=== PATIENT | male | born 1960 | race Caucasian/White ===

== ENCOUNTER 2022-12-26 12:31 | Inpatient (IN) | payer OTHER ==
[~2022-12-26] VITALS: Ht 188 cm; Wt 134.5 kg
[2022-12-26 13:15] VITALS: PULSE 90; RESP 16; O2SAT 99
[2022-12-26] MEDS ORDERED: ASPirin 81 mg TAB PO ONE (13:15)
[2022-12-26 13:24] LABS: Basophils # (auto) 0 10 ^3/uL (0-0.2); Basophils % (auto) 0.3 % (0.0-2.0); Eosinophils # (auto) 0 10 ^3/uL (0-0.8); Eosinophils % (auto) 0.3 % (0.0-7.0); Hematocrit 44.9 % (41.0-53.0); Hemoglobin 15.3 g/dL (13.5-17.5); Lymphocytes # (auto) 2.1 10 ^3/uL (0.4-5.4); Lymphocytes % (auto) 13.1 % (10.0-50.0); Mean Corpuscular Hemoglobin 30.7 pg (28.0-32.0); Mean Corpuscular Hgb Conc. 34.2 g/dL (32.0-36.0); Mean Corpuscular Volume 89.7 fL (80.0-100.0); Monocytes # (auto) 1.4 10 ^3/uL (0-1.3); Monocytes % (auto) 9.1 % (0.0-12.0); Neutrophils # (auto) 12.2 10 ^3/uL (1.6-8.6); Neutrophils % (auto) 77.2 % (37.0-80.0); Nucleated Red Blood Cells % 0.1 %; Red Blood Cells 5.01 10^6/uL (4.5-5.90); Red Cell Distribution Width 13.7 % (11.8-14.3); White Blood Cell 15.8 10^3/uL (4.4-10.8)
[2022-12-26 13:30] LABS: INR 1.06 (0.9-1.15); Partial Thromboplastin Time 24.8 SEC (24.5-34.5); Prothrombin Time 11.1 sec (9.3-11.8)
[2022-12-26 13:31] LABS: Alanine Aminotransferase 24 U/L (7-40); Albumin 4.7 g/dL (3.2-4.8); Alkaline Phosphatase 88 U/L (46-116); Anion Gap 11 (5-15); Aspartate Aminotransferase 21 U/L (13-40); BUN/Creatinine Ratio 11.1 (10.0-20.0); Bilirubin, Total 1.1 mg/dL (0.2-1.0); Blood Urea Nitrogen 26 mg/dL (9-23); Calcium 9.8 mg/dL (8.5-10.1); Carbon Dioxide 22 mmol/L (20-30); Chloride 103 mmol/L (98-107); Glucose 157 mg/dL (74-106); Potassium 4.3 mmol/L (3.5-5.1); Sodium 136 mmol/L (136-145); Total Protein 8.3 g/dL (5.7-8.2)
[2022-12-26] MEDS ORDERED: NITROGLYCERIN 0.4 MG SL TAB SL PRN (14:30)
[2022-12-26] MEDS ORDERED: ONDANSETRON ODT 4 MG TAB PO PRN (14:30)
[2022-12-26] MEDS ORDERED: HYDROcodone-ACET 5/325MG TAB PO PRN (14:30)
[2022-12-26] MEDS ORDERED: MORPHINE SULFATE INJ 2 MG/ml SYRG IV PRN (14:30)
[2022-12-26] MEDS ORDERED: SODIUM CHLORIDE 0.9% 1,000 ML IV ONE ×2 (15:15→17:00)
[2022-12-26] MEDS ORDERED: CEFTRIAXONE SODIUM 2 GM in D5W 5% 100 ML IV ONE (17:00)
[2022-12-26] MEDS: SODIUM CHLORIDE 0.9% 1,000 ML IV SCH (18:50)
[2022-12-26 19:06] LABS: Urine Bacteria FEW /hpf (None Seen); Urine Blood Negative /uL (Negative); Urine Clarity Clear (Clear); Urine Color Yellow (Yellow); Urine Hyaline Cast FEW /lpf (0 - 2); Urine Mucus FEW (None Seen); Urine Protein, UAD TRACE (Negative); Urine Specific Gravity 1.017 (1.001-1.035); Urine Urobilinogen Normal (Negative); Urine WBC 4 /hpf (0 - 3); Urine pH 5.5 (5.0-8.0)
[2022-12-26 19:11] LABS: Amphetamine Screen, Urine Neg (NEGATIVE); Barbiturate Scree,Urine Neg (NEGATIVE); Benzodiazephine Screen, Urine Neg (NEGATIVE); Cannabinoid Screen, Urine Neg (NEGATIVE); Cocaine Screen, Urine Neg (NEGATIVE); Opiate Scree,Urine Neg (NEGATIVE); Phencyclidine Screen, Urine Neg (NEGATIVE)
[2022-12-26 20:00] VITALS: PULSE 95
[2022-12-26 22:00] VITALS: BP 135/70; PULSE 118; RESP 20; TEMP 98.3; O2SAT 98
[2022-12-26] MEDS ORDERED: cefTRIAXone 1GM/50ML D5W 50 ML IV SCH (22:00)
[2022-12-27] VITALS (7 sets, daily range): BP systolic 112–133; BP diastolic 68–76; PULSE 86–101; RESP 17–22; TEMP 97.4–98; O2SAT 96–99
[2022-12-27] MEDS: SODIUM BICARBONATE 50ML VIAL 50 ML in SOD CHL 0.45% 1,000 ML IV SCH ×2 (00:26→18:15)
[2022-12-27 05:24] LABS: Basophils # (auto) 0 10 ^3/uL (0-0.2); Basophils % (auto) 0.3 % (0.0-2.0); Eosinophils # (auto) 0.1 10 ^3/uL (0-0.8); Eosinophils % (auto) 0.8 % (0.0-7.0); Hematocrit 40.3 % (41.0-53.0); Hemoglobin 14.1 g/dL (13.5-17.5); Lymphocytes # (auto) 2.9 10 ^3/uL (0.4-5.4); Mean Corpuscular Hemoglobin 31.1 pg (28.0-32.0); Mean Corpuscular Volume 88.9 fL (80.0-100.0); Monocytes # (auto) 1.4 10 ^3/uL (0-1.3); Monocytes % (auto) 11.6 % (0.0-12.0); Neutrophils # (auto) 7.7 10 ^3/uL (1.6-8.6); Neutrophils % (auto) 63.3 % (37.0-80.0); Nucleated Red Blood Cells % 0.1 %; Red Blood Cells 4.53 10^6/uL (4.5-5.90); Red Cell Distribution Width 13.6 % (11.8-14.3); White Blood Cell 12.2 10^3/uL (4.4-10.8)
[2022-12-27 05:41] LABS: Alanine Aminotransferase 25 U/L (7-40); Albumin 4.5 g/dL (3.2-4.8); Alkaline Phosphatase 85 U/L (46-116); Anion Gap 8 (5-15); Aspartate Aminotransferase 21 U/L (13-40); BUN/Creatinine Ratio 13.3 (10.0-20.0); Bilirubin, Total 0.6 mg/dL (0.2-1.0); Blood Urea Nitrogen 23 mg/dL (9-23); Calcium 9.1 mg/dL (8.7-10.4); Carbon Dioxide 25 mmol/L (20-30); Chloride 105 mmol/L (98-107); Glucose 110 mg/dL (74-106); Potassium 4.4 mmol/L (3.5-5.1); Sodium 138 mmol/L (136-145)
[2022-12-27 05:42] LABS: Total Protein 7.8 g/dL (5.7-8.2)
[2022-12-27] MEDS: PANTOPRAZOLE 40 MG TAB PO SCH ×2 (09:22→10:01)
[2022-12-27] MEDS: cefTRIAXone 1GM/50ML D5W 50 ML IV SCH ×2 (09:22→21:04)
[2022-12-27] MEDS: ASPirin 81 mg TAB PO SCH ×2 (09:22→10:01)
[2022-12-27] MEDS ORDERED: VANCOMYCIN PER PHARMACY 0 MG IV SCH (17:00)
[2022-12-27] MEDS: VANCOMYCIN 1GM/250ML 250 ML IV SCH (18:08)
[2022-12-28] VITALS (8 sets, daily range): BP systolic 103–166; BP diastolic 67–91; PULSE 78–116; RESP 17–20; TEMP 97.7–98.4; O2SAT 97–99
[2022-12-28] MEDS: SODIUM CHLORIDE 0.9% 1,000 ML IV SCH ×2 (02:43→08:34)
[2022-12-28 06:40] LABS: Basophils # (auto) 0.1 10 ^3/uL (0-0.2); Basophils % (auto) 0.6 % (0.0-2.0); Eosinophils # (auto) 0.3 10 ^3/uL (0-0.8); Hematocrit 38.3 % (41.0-53.0); Hemoglobin 13.3 g/dL (13.5-17.5); Lymphocytes # (auto) 3.6 10 ^3/uL (0.4-5.4); Lymphocytes % (auto) 32.8 % (10.0-50.0); Mean Corpuscular Hemoglobin 31.1 pg (28.0-32.0); Mean Corpuscular Hgb Conc. 34.7 g/dL (32.0-36.0); Mean Corpuscular Volume 89.7 fL (80.0-100.0); Monocytes # (auto) 1.1 10 ^3/uL (0-1.3); Monocytes % (auto) 10.4 % (0.0-12.0); Neutrophils # (auto) 5.8 10 ^3/uL (1.6-8.6); Neutrophils % (auto) 53.2 % (37.0-80.0); Nucleated Red Blood Cells % 0.1 %; Red Blood Cells 4.27 10^6/uL (4.5-5.90); Red Cell Distribution Width 13.7 % (11.8-14.3); White Blood Cell 10.9 10^3/uL (4.4-10.8)
[2022-12-28 07:04] LABS: Alanine Aminotransferase 26 U/L (7-40); Alkaline Phosphatase 81 U/L (46-116); Anion Gap 6 (5-15); Calcium 8.7 mg/dL (8.7-10.4); Carbon Dioxide 26 mmol/L (20-30); Chloride 106 mmol/L (98-107); Glucose 95 mg/dL (74-106); Potassium 4.1 mmol/L (3.5-5.1); Sodium 138 mmol/L (136-145)
[2022-12-28 07:05] LABS: Albumin 4.2 g/dL (3.2-4.8); Aspartate Aminotransferase 26 U/L (13-40)
[2022-12-28 07:06] LABS: Bilirubin, Total 0.6 mg/dL (0.2-1.0); Total Protein 7.3 g/dL (5.7-8.2)
[2022-12-28 07:08] LABS: BUN/Creatinine Ratio 13.6 (10.0-20.0); Blood Urea Nitrogen 19 mg/dL (9-23)
[2022-12-28] MEDS: VANCOMYCIN 1GM/250ML 250 ML IV SCH (08:34)
[2022-12-28] MEDS: cefTRIAXone 1GM/50ML D5W 50 ML IV SCH ×2 (09:33→22:11)
[2022-12-28 11:21] LABS: Urine Bacteria NONE SEEN /hpf (None Seen); Urine Blood Negative /uL (Negative); Urine Clarity Clear (Clear); Urine Color Yellow (Yellow); Urine Protein, UAD Negative (Negative); Urine Specific Gravity 1.015 (1.001-1.035); Urine Urobilinogen Normal (Negative); Urine WBC <1 /hpf (0 - 3); Urine pH 5.5 (5.0-8.0)
[2022-12-28 11:32] LABS: Phosphorus 3.2 mg/dL (2.4-5.1)
[2022-12-28 11:43] LABS: Protein, Urine < 6.0 mg/dL (0.0-11.9)
[2022-12-28 11:58] LABS: Creatinine, Urine 95.65 mg/dL (30.0-125.0); Urine Protein/Creatinine Ratio 0.06
[2022-12-28] MEDS: SODIUM BICARBONATE 50ML VIAL 50 ML in SOD CHL 0.45% 1,000 ML IV SCH (12:02)
[2022-12-29] VITALS (7 sets, daily range): BP systolic 105–136; BP diastolic 62–93; PULSE 72–91; RESP 16–20; TEMP 97.5–98.5; O2SAT 20–98
[2022-12-29 06:23] LABS: Basophils # (auto) 0 10 ^3/uL (0-0.2); Basophils % (auto) 0.4 % (0.0-2.0); Eosinophils # (auto) 0.3 10 ^3/uL (0-0.8); Eosinophils % (auto) 3.3 % (0.0-7.0); Hematocrit 38.8 % (41.0-53.0); Hemoglobin 13.5 g/dL (13.5-17.5); Lymphocytes # (auto) 2.9 10 ^3/uL (0.4-5.4); Lymphocytes % (auto) 27.9 % (10.0-50.0); Mean Corpuscular Hgb Conc. 34.7 g/dL (32.0-36.0); Mean Corpuscular Volume 89.5 fL (80.0-100.0); Monocytes # (auto) 1.1 10 ^3/uL (0-1.3); Monocytes % (auto) 10.5 % (0.0-12.0); Neutrophils # (auto) 5.9 10 ^3/uL (1.6-8.6); Neutrophils % (auto) 57.9 % (37.0-80.0); Nucleated Red Blood Cells % 0.1 %; Red Blood Cells 4.34 10^6/uL (4.5-5.90); Red Cell Distribution Width 13.4 % (11.8-14.3); White Blood Cell 10.2 10^3/uL (4.4-10.8)
[2022-12-29 06:44] LABS: Alanine Aminotransferase 35 U/L (7-40); Albumin 4.1 g/dL (3.2-4.8); Alkaline Phosphatase 83 U/L (46-116); Anion Gap 5 (5-15); Aspartate Aminotransferase 33 U/L (13-40); BUN/Creatinine Ratio 10.1 (10.0-20.0); Bilirubin, Total 0.6 mg/dL (0.2-1.0); Blood Urea Nitrogen 14 mg/dL (9-23); Calcium 8.7 mg/dL (8.7-10.4); Carbon Dioxide 27 mmol/L (20-30); Chloride 106 mmol/L (98-107); Glucose 96 mg/dL (74-106); Potassium 4.3 mmol/L (3.5-5.1); Sodium 138 mmol/L (136-145); Total Protein 7.2 g/dL (5.7-8.2)
[2022-12-29] MEDS ORDERED: ADENOSINE 114 MG in GIVE UN-DILUTED 0 ML IV STA (09:09)
[2022-12-29] MEDS: ASPirin 81 mg TAB PO SCH (09:46)
[2022-12-29] MEDS: PANTOPRAZOLE 40 MG TAB PO SCH (09:46)
[2022-12-29] MEDS: cefTRIAXone 1GM/50ML D5W 50 ML IV SCH ×2 (09:48→21:28)
[2022-12-29] MEDS ORDERED: GADOTERATE MEG 7.5 MMOL/15ml INJ (0.5MMOL/ml) IV ONE (11:51)
[2022-12-29] MEDS: SODIUM BICARBONATE 50ML VIAL 50 ML in SOD CHL 0.45% 1,000 ML IV SCH (15:20)
[2022-12-29] MEDS: KETOCONAZOLE 2 % TOPICAL CREAM 15GM TOP SCH (21:59)
[2022-12-30] VITALS (11 sets, daily range): BP systolic 118–159; BP diastolic 65–96; PULSE 74–93; RESP 11–20; TEMP 98.1–99.5; O2SAT 95–99
[2022-12-30 07:57] LABS: INR 1.04 (0.9-1.15); Partial Thromboplastin Time 27.3 SEC (24.5-34.5); Prothrombin Time 10.9 sec (9.3-11.8)
[2022-12-30] MEDS ORDERED: LIDOCAINE 2%HCL (LOCAL ANESTH.) INJ 20ML MDV ONE (08:20)
[2022-12-30] MEDS ORDERED: IODIXANOL 320MG/ML 100ML BTL IV ONE ×3 (08:20→10:01)
[2022-12-30] MEDS ORDERED: ANGIOMAX 250 MG VIAL IV ONE ×2 (08:41→09:55)
[2022-12-30] MEDS ORDERED: MIDAZOLAM HCL 2MG/2ML 2ml VIAL (1mg/ml) ONE (08:42)
[2022-12-30] MEDS ORDERED: fentaNYL CITRATE 100 MCG/2 ML VL ONE (08:42)
[2022-12-30] MEDS ORDERED: SODIUM CHL 0.9% 50 ML ONE ×2 (08:42→09:55)
[2022-12-30] MEDS ORDERED: VERAPAMIL 2.5MG/ML INJ 2ML VIAL IV ONE (08:42)
[2022-12-30] MEDS ORDERED: HEPARIN SODIUM (PORCINE) 5000 UNITS/ML 1ML VIAL ONE (08:42)
[2022-12-30] MEDS ORDERED: ATROPINE SULF 1 MG/10ml SYR ONE (09:46)
[2022-12-30] MEDS ORDERED: CLOPIDOGREL 300 MG TAB ONE (09:55)
[2022-12-30] MEDS ORDERED: niCARdipine 25 MG/10 ML VIAL IV ONE (10:00)
[2022-12-30] MEDS: cefTRIAXone 1GM/50ML D5W 50 ML IV SCH ×2 (10:00→21:45)
[2022-12-30] MEDS: ASPirin 81 mg TAB PO SCH (10:00)
[2022-12-30] MEDS: PANTOPRAZOLE 40 MG TAB PO SCH (10:00)
[2022-12-30] MEDS ORDERED: HYDROmorphone HCL 2 MG/ML VL/or syr ONE (10:12)
[2022-12-30] MEDS: SODIUM BICARBONATE 50ML VIAL 50 ML in SOD CHL 0.45% 1,000 ML IV SCH (10:12)
[2022-12-30] MEDS ORDERED: SODIUM CHLORIDE 0.9% 1,000 ML IV ONE (11:00)
[2022-12-30] MEDS: KETOCONAZOLE 2 % TOPICAL CREAM 15GM TOP SCH ×2 (12:17→22:00)
[2022-12-30] MEDS: SODIUM CHLORIDE 0.9% 1,000 ML IV SCH (13:53)
[2022-12-30] MEDS: ATORVASTATIN 20 MG TAB PO SCH (21:45)
[2022-12-30] MEDS: METOPROLOL TARTRATE 25 MG TAB PO SCH (21:46)
[2022-12-31] VITALS (7 sets, daily range): BP systolic 118–133; BP diastolic 68–88; PULSE 69–89; RESP 16–18; TEMP 37.1; O2SAT 92–99
[2022-12-31] MEDS: SODIUM CHLORIDE 0.9% 1,000 ML IV SCH (02:11)
[2022-12-31 06:35] LABS: Chloride 106 mmol/L (98-107); Potassium 4.4 mmol/L (3.5-5.1); Sodium 137 mmol/L (136-145)
[2022-12-31 06:36] LABS: Anion Gap 5 (5-15); Carbon Dioxide 26 mmol/L (20-30)
[2022-12-31 06:37] LABS: Calcium 8.8 mg/dL (8.7-10.4)
[2022-12-31 06:41] LABS: BUN/Creatinine Ratio 8.3 (10.0-20.0); Blood Urea Nitrogen 10 mg/dL (9-23); Glucose 104 mg/dL (74-106)
[2022-12-31] MEDS: ASPirin 81 mg TAB PO SCH (09:48)
[2022-12-31] MEDS: METOPROLOL TARTRATE 25 MG TAB PO SCH ×2 (09:50→20:57)
[2022-12-31] MEDS: cefTRIAXone 1GM/50ML D5W 50 ML IV SCH ×2 (09:54→20:48)
[2022-12-31] MEDS: KETOCONAZOLE 2 % TOPICAL CREAM 15GM TOP SCH ×2 (09:54→20:57)
[2022-12-31] MEDS: PANTOPRAZOLE 40 MG TAB PO SCH (09:54)
[2022-12-31] MEDS ORDERED: CLOPIDOGREL BISULFATE 75 MG TAB PO SCH (10:00)
[2022-12-31 11:07] LABS: Chlamydia Trachomatis, NAA Negative (Negative); Neisseria gonorrhoeae, NAA Negative (Negative)
[2022-12-31] MEDS ORDERED: ATOR20TA50 PO (18:15)
[2022-12-31] MEDS ORDERED: ASPI-325 PO (18:15)
[2022-12-31] MEDS ORDERED: MET25T PO (18:15)
[2022-12-31] MEDS ORDERED: CLOP75TA70 PO (18:15)
[2022-12-31] MEDS: ATORVASTATIN 20 MG TAB PO SCH (20:48)
== END 2022-12-31 21:45 | DRG 246 ==
LOC: EEVIPCON 12:31 → ER 12:31 → EDBD 12:31 → TELE 14:26 → TELE-WESTW 17:59
PROVIDERS: ADMIT Specialist; ATTEND Internal Medicine
PROC: 027034Z Dilation of Coronary Artery, One Artery with Drug-eluting Intraluminal Device, Percutaneous Approach (ICD-10-PCS; principal; 2022-12-30)
PROC: 4A023N7 Measurement of Cardiac Sampling and Pressure, Left Heart, Percutaneous Approach (ICD-10-PCS; 2022-12-30)
PROC: B211YZZ Fluoroscopy of Multiple Coronary Arteries using Other Contrast (ICD-10-PCS; 2022-12-30)
PROC: B215YZZ Fluoroscopy of Left Heart using Other Contrast (ICD-10-PCS; 2022-12-30)
DX: I24.9 Acute ischemic heart disease, unspecified (principal); N17.0 Acute kidney failure with tubular necrosis; N39.0 Urinary tract infection, site not specified; I10 Essential (primary) hypertension; Z82.49 Family history of ischemic heart disease and other diseases of the circulatory system; Z87.891 Personal history of nicotine dependence; R19.7 Diarrhea, unspecified
CPT/HCPCS: 36415; 71045; 72158; 76775; 78452; 80048; 80053; 80202; 80307; 81001; 82306; 82570; 83735; 83880; 83970; 84100; 84156; 84484; 84550; 85025; 85379; 85610; 85730; 86703; 86850; 86900; 86901; 87040; 87077; 87086; 87186; 93005; 93017; 93306; 99152; 99153; G0378; J0153; J0696; J2250; J7060; Q9967

== ENCOUNTER 2023-01-02 08:59 | Inpatient (IN) | payer OTHER ==
[~2023-01-02] VITALS: Ht 177.8 cm; Wt 129.0 kg
[2023-01-02] VITALS (7 sets, daily range): BP systolic 115–124; BP diastolic 72–76; PULSE 67–81; RESP 14–22; TEMP 97.7; O2SAT 90–98
[~2023-01-02 08:59] MED LIST: ASPI-325 PO; ATOR20TA50 PO; CLOP75TA70 PO; MET25T PO
[2023-01-02 09:37] LABS: Basophils # (auto) 0.2 10 ^3/uL (0-0.2); Basophils % (auto) 1.5 % (0.0-2.0); Eosinophils # (auto) 0.4 10 ^3/uL (0-0.8); Eosinophils % (auto) 3.5 % (0.0-7.0); Hematocrit 38.5 % (41.0-53.0); Hemoglobin 13.3 g/dL (13.5-17.5); Lymphocytes # (auto) 2.1 10 ^3/uL (0.4-5.4); Lymphocytes % (auto) 20.3 % (10.0-50.0); Mean Corpuscular Hemoglobin 30.8 pg (28.0-32.0); Mean Corpuscular Hgb Conc. 34.6 g/dL (32.0-36.0); Mean Corpuscular Volume 89.1 fL (80.0-100.0); Monocytes # (auto) 0.9 10 ^3/uL (0-1.3); Neutrophils # (auto) 6.9 10 ^3/uL (1.6-8.6); Neutrophils % (auto) 65.7 % (37.0-80.0); Nucleated Red Blood Cells % 0.1 %; Red Blood Cells 4.32 10^6/uL (4.5-5.90); Red Cell Distribution Width 13.4 % (11.8-14.3); White Blood Cell 10.5 10^3/uL (4.4-10.8)
[2023-01-02 10:25] LABS: Alanine Aminotransferase 42 U/L (7-40); Albumin 4.2 g/dL (3.2-4.8); Alkaline Phosphatase 78 U/L (46-116); Aspartate Aminotransferase 39 U/L (13-40); BUN/Creatinine Ratio 17.8 (10.0-20.0); Blood Urea Nitrogen 21 mg/dL (9-23); Calcium 8.7 mg/dL (8.5-10.1); Carbon Dioxide 25 mmol/L (20-30); Glucose 104 mg/dL (74-106)
[2023-01-02 10:26] LABS: Total Protein 7.1 g/dL (5.7-8.2)
[2023-01-02] MEDS ORDERED: ASPirin 81 mg TAB PO ONE (10:30)
[2023-01-02 10:37] LABS: Anion Gap 7 (5-15); Chloride 107 mmol/L (98-107); Potassium 4.2 mmol/L (3.5-5.1); Sodium 139 mmol/L (136-145)
[2023-01-02] MEDS ORDERED: MORPHINE SULFATE INJ 2 MG/ml SYRG IV PRN (11:00)
[2023-01-02] MEDS ORDERED: NITROGLYCERIN 0.4 MG SL TAB SL PRN (11:00)
[2023-01-02 11:40] LABS: INR 1.05 (0.9-1.15)
[2023-01-02] MEDS ORDERED: HEPARIN DRIP/D5W 100UNITS/ML 250 ML IV SCH (16:15)
[2023-01-02] MEDS ORDERED: CLOPIDOGREL BISULFATE 75 MG TAB PO ONE (16:15)
[2023-01-02] MEDS ORDERED: HEPARIN SODIUM (PORCINE) 5000 UNITS/ML 1ML VIAL IV ONE (16:30)
[2023-01-02] MEDS ORDERED: ANGIOMAX 250 MG VIAL IV ONE (16:41)
[2023-01-02] MEDS ORDERED: IOHEXOL 350 MG/ML 100ML IJ ONE ×2 (16:42→18:17)
[2023-01-02] MEDS ORDERED: LIDOCAINE 2%HCL (LOCAL ANESTH.) INJ 20ML MDV ONE ×2 (16:42→17:33)
[2023-01-02] MEDS ORDERED: fentaNYL CITRATE 100 MCG/2 ML VL ONE (16:42)
[2023-01-02] MEDS ORDERED: MIDAZOLAM HCL 2MG/2ML 2ml VIAL (1mg/ml) ONE (16:42)
[2023-01-02] MEDS ORDERED: SODIUM CHL 0.9% 0 ML ONE (16:42)
[2023-01-02 16:59] LABS: Basophils # (auto) 0.1 10 ^3/uL (0-0.2); Basophils % (auto) 0.7 % (0.0-2.0); Eosinophils # (auto) 0.2 10 ^3/uL (0-0.8); Eosinophils % (auto) 2.9 % (0.0-7.0); Hematocrit 36.2 % (41.0-53.0); Hemoglobin 12.9 g/dL (13.5-17.5); Lymphocytes # (auto) 2.2 10 ^3/uL (0.4-5.4); Lymphocytes % (auto) 25.1 % (10.0-50.0); Mean Corpuscular Hemoglobin 31.5 pg (28.0-32.0); Mean Corpuscular Hgb Conc. 35.5 g/dL (32.0-36.0); Mean Corpuscular Volume 88.7 fL (80.0-100.0); Monocytes # (auto) 0.9 10 ^3/uL (0-1.3); Monocytes % (auto) 10.9 % (0.0-12.0); Neutrophils # (auto) 5.2 10 ^3/uL (1.6-8.6); Neutrophils % (auto) 60.4 % (37.0-80.0); Red Blood Cells 4.08 10^6/uL (4.5-5.90); Red Cell Distribution Width 13.3 % (11.8-14.3); White Blood Cell 8.7 10^3/uL (4.4-10.8)
[2023-01-02 17:22] LABS: INR 1.06 (0.9-1.15); Partial Thromboplastin Time 28.4 SEC (24.5-34.5); Prothrombin Time 11.1 sec (9.3-11.8)
[2023-01-02] MEDS ORDERED: LIDOCAINE 2%HCL (LOCAL ANESTH.) INJ 10ml MDV ONE (17:32)
[2023-01-02] MEDS: SODIUM CHLORIDE 0.9% 1,000 ML IV SCH (19:00)
[2023-01-02] MEDS: ATORVASTATIN 20 MG TAB PO SCH (23:05)
[2023-01-02] MEDS: METOPROLOL TARTRATE 25 MG TAB PO SCH (23:05)
[2023-01-03] VITALS (8 sets, daily range): BP systolic 91–131; BP diastolic 50–75; PULSE 59–74; RESP 16–22; TEMP 97.9–99.2; O2SAT 92–97
[2023-01-03 05:46] LABS: Basophils # (auto) 0.1 10 ^3/uL (0-0.2); Basophils % (auto) 0.6 % (0.0-2.0); Eosinophils # (auto) 0.2 10 ^3/uL (0-0.8); Eosinophils % (auto) 2.4 % (0.0-7.0); Hematocrit 35.9 % (41.0-53.0); Hemoglobin 12.6 g/dL (13.5-17.5); Lymphocytes % (auto) 22.9 % (10.0-50.0); Mean Corpuscular Hemoglobin 31.1 pg (28.0-32.0); Mean Corpuscular Hgb Conc. 35.2 g/dL (32.0-36.0); Mean Corpuscular Volume 88.3 fL (80.0-100.0); Monocytes # (auto) 0.9 10 ^3/uL (0-1.3); Monocytes % (auto) 10.6 % (0.0-12.0); Neutrophils # (auto) 5.6 10 ^3/uL (1.6-8.6); Neutrophils % (auto) 63.5 % (37.0-80.0); Nucleated Red Blood Cells % 0.1 %; Red Blood Cells 4.06 10^6/uL (4.5-5.90); Red Cell Distribution Width 13.4 % (11.8-14.3); White Blood Cell 8.8 10^3/uL (4.4-10.8)
[2023-01-03 06:02] LABS: Alanine Aminotransferase 35 U/L (7-40); Albumin 4.1 g/dL (3.2-4.8); Alkaline Phosphatase 81 U/L (46-116); Anion Gap 5 (5-15); Aspartate Aminotransferase 26 U/L (13-40); BUN/Creatinine Ratio 15.8 (10.0-20.0); Blood Urea Nitrogen 19 mg/dL (9-23); Calcium 8.4 mg/dL (8.7-10.4); Carbon Dioxide 26 mmol/L (20-30); Chloride 106 mmol/L (98-107); Glucose 93 mg/dL (74-106); Potassium 4.4 mmol/L (3.5-5.1); Sodium 137 mmol/L (136-145)
[2023-01-03 06:03] LABS: Bilirubin, Total 0.8 mg/dL (0.2-1.0); Total Protein 7.3 g/dL (5.7-8.2)
[2023-01-03] MEDS: CLOPIDOGREL BISULFATE 75 MG TAB PO SCH (09:42)
[2023-01-03] MEDS ORDERED: IOHEXOL 350 MG/ML 100ML IJ ONE (09:42)
[2023-01-03] MEDS: ASPirin-EC 81 mg tab PO SCH (09:43)
[2023-01-03] MEDS: METOPROLOL TARTRATE 25 MG TAB PO SCH ×2 (09:43→22:00)
[2023-01-03] MEDS: SODIUM CHLORIDE 0.9% 1,000 ML IV SCH ×2 (09:47→21:40)
[2023-01-03] MEDS: ATORVASTATIN 20 MG TAB PO SCH (21:29)
[2023-01-04] VITALS (7 sets, daily range): BP systolic 110–155; BP diastolic 66–78; PULSE 61–75; RESP 18–20; TEMP 97.6–98.7; O2SAT 94–98
[2023-01-04] MEDS: CLOPIDOGREL BISULFATE 75 MG TAB PO SCH (09:18)
[2023-01-04] MEDS: ASPirin-EC 81 mg tab PO SCH (09:18)
[2023-01-04] MEDS: METOPROLOL TARTRATE 25 MG TAB PO SCH ×2 (09:19→22:07)
[2023-01-04] MEDS: SODIUM CHLORIDE 0.9% 1,000 ML IV SCH (11:00)
[2023-01-04] MEDS ORDERED: LOSARTAN POTASSIUM 50 MG TAB PO ONE (13:15)
[2023-01-04] MEDS: ATORVASTATIN 20 MG TAB PO SCH (22:03)
[2023-01-05 05:00] VITALS: BP 124/74; PULSE 60; RESP 18; TEMP 97.4; O2SAT 97
[2023-01-05] MEDS ORDERED: VENL1TAB96 PO (07:10)
[2023-01-05] MEDS ORDERED: SPIR50TA2 PO (07:16)
[2023-01-05] MEDS ORDERED: DULO60CA41 PO (07:16)
[2023-01-05 08:00] VITALS: PULSE 59
[2023-01-05] MEDS: METOPROLOL TARTRATE 25 MG TAB PO SCH (08:21)
[2023-01-05] MEDS: CLOPIDOGREL BISULFATE 75 MG TAB PO SCH (08:21)
[2023-01-05] MEDS: ASPirin-EC 81 mg tab PO SCH (08:21)
[2023-01-05 09:00] VITALS: BP 130/83; PULSE 62; RESP 17; TEMP 98.5; O2SAT 97
[2023-01-05] MEDS ORDERED: LOSARTAN POTASSIUM 50 MG TAB PO SCH (10:00)
[2023-01-05] MEDS ORDERED: CLOP75TA70 PO (12:08)
[2023-01-05 12:36] VITALS: BP 127/83; PULSE 69; RESP 17; TEMP 97.9; O2SAT 95
[2023-01-05 12:49] VITALS: BP 127/83; PULSE 69; RESP 17; TEMP 97.9; O2SAT 95
== END 2023-01-05 16:00 | DRG 282 ==
LOC: EDBD 08:59 → ER 08:59 → EEVIPCON 08:59 → TELE 11:09 → TELE-WESTW 18:59
PROVIDERS: ADMIT Internal Medicine; ATTEND Internal Medicine
PROC: B2111ZZ Fluoroscopy of Multiple Coronary Arteries using Low Osmolar Contrast (ICD-10-PCS; principal; 2023-01-02)
PROC: B2151ZZ Fluoroscopy of Left Heart using Low Osmolar Contrast (ICD-10-PCS; 2023-01-02)
PROC: 4A023N7 Measurement of Cardiac Sampling and Pressure, Left Heart, Percutaneous Approach (ICD-10-PCS; 2023-01-02)
PROC: B41F1ZZ Fluoroscopy of Right Lower Extremity Arteries using Low Osmolar Contrast (ICD-10-PCS; 2023-01-02)
DX: I21.4 Non-ST elevation (NSTEMI) myocardial infarction (principal); I25.10 Atherosclerotic heart disease of native coronary artery without angina pectoris; I10 Essential (primary) hypertension; J44.9 Chronic obstructive pulmonary disease, unspecified; Z87.891 Personal history of nicotine dependence; Z79.899 Other long term (current) drug therapy; Z79.82 Long term (current) use of aspirin; Z82.49 Family history of ischemic heart disease and other diseases of the circulatory system; Z98.61 Coronary angioplasty status; R55 Syncope and collapse
CPT/HCPCS: 36415; 70450; 71045; 71275; 80053; 83880; 84484; 85025; 85610; 85730; 87081; 93005; 93458; 99152; 99291; G0378; J2001; J2250